=== PATIENT | male | born 1970 | race Caucasian/White ===

== ENCOUNTER 2020-09-18 07:13 | Day surgery (SDC) | payer BC ==
[~2020-09-18 07:13] MED LIST: Lactated Ringers 1,000 ML IV SCH; Lidocaine 1%/Sod Bicarbonate in NS 8.4% 1 ML Syringe IDERM PRN; Sodium Chloride 0.9% 10 ML Syringe FLUSH PRN
[2020-09-18] MEDS ORDERED: Propofol 200 MG/20 ML SDV ONE (07:30)
[2020-09-18] MEDS ORDERED: Midazolam 1 MG/ML 2 ML SDV ONE (07:30)
--- NOTE | 2020-09-18 07:44 | PCM.PREANE ---
Preanesthetic Assessment - Anesthesia/Transfusion/Family Hx Anesthesia History: Prior Anesthesia Without Reaction Family History of Anesthesia Reaction: No Transfusion History: No Prior Transfusion(s) - Review of Systems General: No Symptoms, Other (BMI 37) Pulmonary: Other (chewing tobacco, last used 09/17/20 [facility], no cpap usage) Cardiovascular: Other (HTN, took am meds) Gastrointestinal: Other (occasional reflux related to diet) Neurological: No Symptoms Other: Reports: None - Physical Assessment NPO Status Date: 09/18/20 NPO Status Time: 04:30 ASA Class: 2 Mental Status: Alert & Oriented x3 Dentition: Reports: Normal Dentition Thyro-Mental Finger Breadths: 3 Mouth Opening Finger Breadths: 2 ROM/Head Extension: Full Lungs: Clear to Auscultation, Normal Respiratory Effort Cardiovascular: Regular Rate, Regular Rhythm - Allergies Allergies/Adverse Reactions: Allergies Allergy/AdvReac Type Severity Reaction Status Date / Time No Known Allergies Allergy Verified 09/17/20 16:27 - Blood Blood Available: No Product(s) Available: None - Anesthesia Plan Pre-Op Medication Ordered: None Beta Yesica: Metoprolol Med Last Dose Date: 09/18/20 Med Last Dose Time: 05:30 - Acknowledgements Anesthesia Type Planned: MAC Pt an Appropriate Candidate for the Planned Anesthesia: Yes Alternatives and Risks of Anesthesia Discussed w Pt/Guardian: Yes Pt/Guardian Understands and Agrees with Anesthesia Plan: Yes PreAnesthesia Questionnaire HEENT History: Reports: Impaired Vision Cardiovascular History: Reports: Hypertension Respiratory History: Reports: Sleep Apnea Gastrointestinal History: Reports: None Genitourinary History: Reports: Other (See Below) Other Genitourinary History: hematuria DAMASCENER History: Reports: None Musculoskeletal History: Reports: None Neurological History: Reports: None Psychiatric History: Reports: Other (See Below) Other Psychiatric History: sleep disturbances Endocrine/Metabolic History: Reports: Obesity/BMI 30+ Hematologic History: Reports: Other (See Below) Other Hematologic History: hypokalemia Immunologic History: Reports: None Oncologic (Cancer) History: Reports: None Dermatologic History: Reports: Other (See Below) Other Dermatologic History: sebaceous cyst - Past Surgical History Head Surgeries/Procedures: Reports: None HEENT Surgical History: Reports: Tonsillectomy Cardiovascular Surgical History: Reports: None Respiratory Surgical History: Reports: None GI Surgical History: Reports: Hernia, Inguinal, Other (See Below) Other GI Surgeries/Procedures: diaphargmatic hernia repair Male Surgical History: Reports: Other (See Below) Other Male Surgeries/Procedures: left orchiectomy Endocrine Surgical History: Reports: None Neurological Surgical History: Reports: None Musculoskeletal Surgical History: Reports: None Oncologic Surgical History: Reports: None - SUBSTANCE USE Tobacco Use Status *Q: Current Every Day Tobacco User Tobacco Use Within Last Twelve Months: Snuff/Dip Recreational Drug Use History: No - HOME MEDS Home Medications: Home Meds Potassium Chloride [Klor-Con M20] 40 meq PO DAILY 07/24/15 [History] Metoprolol Succinate 100 mg PO DAILY 09/17/20 [History] amLODIPine [Norvasc] 5 mg PO DAILY 09/17/20 [History] hydroCHLOROthiazide [Hydrochlorothiazide] 25 mg PO DAILY 09/17/20 [History] lisinopriL [Lisinopril] 60 mg PO DAILY 09/17/20 [History] - CURRENT (IN HOUSE) MEDS Current Meds: Current Medications Lactated Ringer's (Ringers, Lactated) 1,000 mls @ 125 mls/hr IV ASDIRECTED ANGELINA Stop: 09/18/20 18:00 Lidocaine/Sodium Bicarbonate (Lidocaine 1%/Sod Bicarbonate In Ns 8.4% 1 Ml Syringe) 0.25 ml IDERM ONETIME PRN PRN Reason: Prior to IV Start Stop: 09/18/20 18:00 Sodium Chloride (Sodium Chloride 0.9% 10 Ml Syringe) 10 ml FLUSH ASDIRECTED PRN PRN Reason: Keep Vein Open Stop: 09/18/20 18:00 Discontinued Medications Midazolam HCl (Midazolam 1 Mg/Ml 2 Ml Sdv) Confirm Administered Dose 2 mg .ROUTE .STK-MED ONE Stop: 09/18/20 07:31 Propofol (Propofol 200 Mg/20 Ml Sdv) Confirm Administered Dose 400 mg .ROUTE .STK-MED ONE Stop: 09/18/20 07:31
--- NOTE | 2020-09-18 08:26 | PCM.PRNOTE ---
- Free Text/Narrative Note: Date: 09/18/2020 Procedure: diagnostic colonoscopy Indication: positive Cologuard Endoscopist: Devon Irene MD Findings: excellent prep. No polyps or other pathology noted. Detailed Report: The patient was taken to the endoscopy suite and placed in left lateral decubitus position. Timeout was performed and monitored anesthesia care was initiated. Visual inspection of the anus revealed small external hemorrhoidal skin tags anteriorly. Digital rectal exam was unremarkable. The colonoscope was inserted and advanced all the way to the cecum with ease. The appendiceal orifice was visualized and the terminal ileum was intubated. Prep was excellent. The scope was slowly withdrawn and mucosal surfaces carefully inspected. No polyps were identified. No other pathology such as diverticulosis or internal hemorrhoids was noted. Air was suctioned from the distal colon and rectum prior to withdrawal of the scope. Patient tolerated the procedure well.
--- NOTE | 2020-09-18 08:27 | PCM48HPAN ---
Post Anesthesia Note - EVALUATION WITHIN 48HRS OF ANESTHETIC Vital Signs in Normal Range: Yes Patient Participated in Evaluation: Yes Respiratory Function Stable: Yes Airway Patent: Yes Cardiovascular Function Stable: Yes Hydration Status Stable: Yes Pain Control Satisfactory: Yes Nausea and Vomiting Control Satisfactory: Yes Mental Status Recovered: Yes
[2020-09-18 12:46] VITALS: BP 113/69; PULSE 54
== END 2020-09-18 09:14 | disposition home or self-care (01) ==
LOC: JD.SDS 07:13
PROVIDERS: ATTEND Surgery
DX: K64.4 Residual hemorrhoidal skin tags (principal); R19.5 Other fecal abnormalities; I10 Essential (primary) hypertension; G47.33 Obstructive sleep apnea (adult) (pediatric); E66.9 Obesity, unspecified; Z68.37 Body mass index [BMI] 37.0-37.9, adult
CPT/HCPCS: 45378; J2250; J2704; J7120; 00811

== ENCOUNTER 2021-03-25 09:21 | Emergency (ER) | payer BC ==
[2021-03-25 09:45] VITALS: BP 153/109; PULSE 72
== END 2021-03-25 11:16 | disposition home or self-care (01) ==
LOC: JD.ED 09:21
DX: S62.512A Displaced fracture of proximal phalanx of left thumb, initial encounter for closed fracture (principal); I10 Essential (primary) hypertension; E66.9 Obesity, unspecified; Z68.34 Body mass index [BMI] 34.0-34.9, adult; Z72.0 Tobacco use; Z79.899 Other long term (current) drug therapy; W18.09XA Striking against other object with subsequent fall, initial encounter
CPT/HCPCS: 29125; 73100-26-LT; 73100-LT; 73120-26-LT; 73120-LT; 99283; 99283-25

== ENCOUNTER 2021-05-21 10:45 | Day surgery (SDC) | payer BC ==
[~2021-05-21 10:45] MED LIST changes: +Sodium Chloride 0.9% 10 ML Syringe FLUSH SCH
[2021-05-21] MEDS ORDERED: HYDROmorphone 0.5 MG/0.5 ML Syringe IVPUSH PRN ×2 (11:44→12:47)
[2021-05-21] MEDS ORDERED: fentaNYL 100 MCG/2 ML SDV IVPUSH PRN ×2 (11:44→12:47)
[2021-05-21] MEDS ORDERED: Ondansetron 4 MG/2 ML SDV IVPUSH PRN ×2 (11:44→12:47)
[2021-05-21] MEDS ORDERED: Lidocaine 1% 4 ML ONE (12:16)
[2021-05-21] MEDS ORDERED: Propofol 200 MG/20 ML SDV ONE (12:16)
[2021-05-21] MEDS ORDERED: fentaNYL 100 MCG/2 ML SDV ONE (12:16)
[2021-05-21] MEDS ORDERED: Lidocaine 1% 30 ML SDV ONE (12:37)
[2021-05-21] MEDS ORDERED: Midazolam 1 MG/ML 2 ML SDV ONE (12:41)
[2021-05-21] MEDS ORDERED: ceFAZolin 1 GM Vial ONE (12:51)
[2021-05-21 13:55] VITALS: BP 145/72; PULSE 53
== END 2021-05-21 13:50 | disposition home or self-care (01) ==
LOC: JD.SDS 10:45
PROVIDERS: ATTEND Orthopaedic Surgery
DX: Z47.2 Encounter for removal of internal fixation device (principal); I10 Essential (primary) hypertension; G47.33 Obstructive sleep apnea (adult) (pediatric); E66.9 Obesity, unspecified; Z87.891 Personal history of nicotine dependence; Z79.899 Other long term (current) drug therapy
CPT/HCPCS: 20680; 87641; J0690; J2250; J2704; J3010; J7120